=== PATIENT | male | born 1960 | race Caucasian/White ===

== ENCOUNTER → 2020-06-27 10:53 | Outpatient (BNVA) | payer OTHER, SELFPAY | PROVIDERS: Visit Provider Orthopaedic Surgery | DX: M18.12 Unilateral primary osteoarthritis of first carpometacarpal joint, left hand (principal) | CPT/HCPCS: 99202 ==

== ENCOUNTER 2020-07-10 14:16 | Outpatient (REF) | payer OTHER, SELFPAY ==
--- NOTE | ~2020-07-10 | XR_ITS ---
EXAMINATION: XR HAND, RIGHT CLINICAL INFORMATION: Right hand x-ray COMPARISON: Previous x-ray August 2018 TECHNIQUE: PA, lateral, and oblique views of the right hand. FINDINGS: Bone alignment is normal. No fracture or dislocation is seen. 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 Findings are similar to August 2018 exam. Soft tissues are unremarkable. 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
== END 2020-07-10 14:17 | disposition home or self-care (01) ==
LOC: HO.HOSX 14:16
PROVIDERS: Visit Provider Orthopaedic Surgery
DX: M18.0 Bilateral primary osteoarthritis of first carpometacarpal joints (principal); E11.9 Type 2 diabetes mellitus without complications
CPT/HCPCS: 20600; 73130; 99212; J1020